=== PATIENT | female | born 1970 | race Caucasian/White ===

== ENCOUNTER 2019-02-10 05:51 | Day surgery (SDC) | payer BC ==
[2019-02-10] MEDS ORDERED: Lactated Ringers 1,000 ML IV SCH (06:30)
[2019-02-10] MEDS ORDERED: Versed 2 MG/2 ML Injection ONE (08:04)
[2019-02-10] MEDS ORDERED: DIPRIVAN 200 MG/20 ML IV ONE (08:04)
[2019-02-10 09:15] VITALS: PULSE 71
--- NOTE | 2019-02-10 09:28 | OP ---
SURGERY DATE/TIME: 02/10/2019 0804 PREOPERATIVE DIAGNOSES: 1) Dysphagia. 2) Moderate gastric pain. POSTOPERATIVE DIAGNOSIS: Moderate duodenitis. PROCEDURE: Esophagogastroduodenoscopy with biopsy. SURGEON: Dr. Solano. ANESTHESIA: Medications were given by the anesthesia department. BRIEF HISTORY: The patient is a 48 year old white female who reports that she has problems with dysphagia that has been getting worse recently, trouble with swallowing her food at times with passage of food in the throat area. The patient also notes some mild epigastric discomfort. It was noted that the patient takes ibuprofen and aspirin for chronic back problems. The patient was suggested to have endoscopic evaluation. She was appraised of the risks of the procedure including the risk of perforation, phlebitis, untoward reaction to medication, bleeding and missed lesions. The patient verbalized her understanding and desired to have the procedure performed. DESCRIPTION OF PROCEDURE: The patient was given the medications by the anesthesia department. She had continuous pulse oximetry, ECG monitoring, intermittent blood pressure monitoring and tidal CO2 monitoring during the examination. She was placed in the left lateral decubitus position. A bite block was placed. The flexible Olympus gastroscope was used to intubate the oropharynx. A view of the larynx was obtained and was normal. The scope was easily passed in the esophagus which was normal throughout its length. The stomach was entered where normal gastric rugal folds were seen and these distended nicely with insufflation of air. The scope was passed along the greater curvature of the stomach to the antrum. The pylorus was encountered and intubated. The duodenum inspected and found to have multiple superficial aphthous ulcerations throughout the first, second and third portions of duodenum. Biopsies were obtained from duodenum. Biopsies were also obtained from gastric antrum. The scope was removed from the patient who tolerated the procedure well and sent back to outpatient recovery in good condition.
[2019-02-10 09:43] VITALS: BP 114/61; O2SAT 97
== END 2019-02-10 09:35 | disposition home or self-care (01) ==
LOC: SDC 05:51
PROVIDERS: ATTEND Family Medicine
DX: K29.80 Duodenitis without bleeding (principal); R10.9 Unspecified abdominal pain
CPT/HCPCS: J2250; J2704